=== PATIENT | female | born 1995 | race Caucasian/White ===

== ENCOUNTER → 2017-10-23 | Outpatient (CLI) | payer OTHER ==
[2017-10-23 14:17] LABS: BASOPHILS ABSOLUTE AUTO 0.02 K/mm3 (0.00-0.23); BASOPHILS PERCENT AUTO 0 % (0-2); EOSINOPHILS ABSOLUTE AUTO 0.05 K/mm3 (0.00-0.68); EOSINOPHILS PERCENT AUTO 1 % (0-6); IMMATURE GRAN ABSOLUTE AUTO 0.01 K/mm3 (0.00-0.10); IMMATURE GRAN PERCENT AUTO 0 % (0-1); LYMPHOCYTES ABSOLUTE AUTO 2.75 K/mm3 (0.84-5.20); LYMPHOCYTES PERCENT AUTO 43 % (21-46); MONOCYTES ABSOLUTE AUTO 0.45 K/mm3 (0.16-1.47); MONOCYTES PERCENT AUTO 7 % (4-13); Mean Corpuscular HGB Conc 34.2 g/dL (31.5-36.5); Mean Corpuscular Volume 88 fL (80-100); NEUTROPHILS PERCENT AUTO 49 % (41-73); Platelet Count 268 K/mm3 (150-400); RDW Coefficient Variation 12.1 % (11.7-14.2); Red Blood Cell Count 4.33 M/mm3 (3.80-5.20); White Blood Cell Count 6.38 K/mm3 (4.00-11.30)
[2017-10-23 14:20] LABS: Anion Gap 10 mmol/L (6-16); Blood Urea Nitrogen 11 mg/dL (8-24); Bun/Creatinine Ratio 15.9 (12.0-20.0); CO2, Blood 26 mmol/L (21-32); Calcium, Blood 9.4 mg/dL (8.5-10.1); Chloride, Blood 104 mmol/L (98-108); Creatinine, Blood 0.69 mg/dL (0.40-1.00); Glomerular Filtration Rate >60 (60-); Glucose, Blood 83 mg/dL (70-99); Potassium, Blood 4.2 mmol/L (3.5-5.5); Sodium, Blood 140 mmol/L (136-145)
== END | disposition home or self-care (01) ==
LOC: LAB EV 14:09 → LAB SHORT 14:09
PROVIDERS: Physician Assistant Surgical
DX: R07.9 Chest pain, unspecified (principal)
CPT/HCPCS: 80048; 85025; 85379

== ENCOUNTER → 2017-11-13 | Outpatient (CLI) | payer OTHER ==
[2017-11-16 15:07] LABS: CHLAMYDIA BY NAA Negative (Negative); GONOCOCCUS BY NAA Negative (Negative); TRICH VAG BY NAA Negative (Negative)
== END | disposition home or self-care (01) ==
LOC: LAB EV 15:22 → LAB SHORT 15:22
PROVIDERS: Physician Assistant
DX: R10.2 Pelvic and perineal pain (principal)
CPT/HCPCS: 87070; 87205; 87491; 87591; 87661

== ENCOUNTER 2018-02-18 17:50 | Emergency (ER) | payer OTHER ==
[~2018-02-18] VITALS: Ht 154.9 cm; Wt 52.2 kg
[2018-02-18] MEDS ORDERED: BRINTELLIX10 MG PO (18:13)
[2018-02-18] MEDS ORDERED: CONCOR (18:17)
[2018-02-18 19:07] LABS: BASOPHILS ABSOLUTE AUTO 0.02 K/mm3 (0.00-0.23); BASOPHILS PERCENT AUTO 0 % (0-2); EOSINOPHILS ABSOLUTE AUTO 0.03 K/mm3 (0.00-0.68); EOSINOPHILS PERCENT AUTO 0 % (0-6); Hematocrit 39.5 % (33.0-51.0); Hemoglobin 13.6 g/dL (11.5-16.0); IMMATURE GRAN ABSOLUTE AUTO 0.01 K/mm3 (0.00-0.10); IMMATURE GRAN PERCENT AUTO 0 % (0-1); LYMPHOCYTES ABSOLUTE AUTO 3.64 K/mm3 (0.84-5.20); LYMPHOCYTES PERCENT AUTO 48 % (21-46); MONOCYTES ABSOLUTE AUTO 0.55 K/mm3 (0.16-1.47); MONOCYTES PERCENT AUTO 7 % (4-13); Mean Corpuscular HGB 29.4 pg (26.0-34.0); Mean Corpuscular HGB Conc 34.4 g/dL (31.5-36.5); Mean Corpuscular Volume 86 fL (80-100); NEUTROPHILS PERCENT AUTO 44 % (41-73); Platelet Count 318 K/mm3 (150-400); RDW Coefficient Variation 12.4 % (11.7-14.2); RDW Standard Deviation 38.5 fL (35.1-46.3); Red Blood Cell Count 4.62 M/mm3 (3.80-5.20); White Blood Cell Count 7.55 K/mm3 (4.00-11.30)
[2018-02-18 19:29] LABS: Alanine Aminotransfer (ALT/SGP 18 U/L (12-78); Albumin, Blood 3.9 g/dL (3.4-5.0); Albumin/Globulin Ratio 0.9 (0.8-1.8); Alk Phos 56 U/L (50-136); Anion Gap 10 mmol/L (6-16); Aspartate Aminotrans (AST/SGOT 13 U/L (12-37); Bilirubin, Total 0.5 mg/dL (0.1-1.0); Blood Urea Nitrogen 9 mg/dL (8-24); Bun/Creatinine Ratio 14.8 (12.0-20.0); CO2, Blood 21 mmol/L (21-32); Calcium, Blood 9.2 mg/dL (8.5-10.1); Chloride, Blood 109 mmol/L (98-108); Creatinine, Blood 0.61 mg/dL (0.40-1.00); Globulin, Blood 4.3 g/dL (2.2-4.0); Glomerular Filtration Rate >60 (60-); Glucose, Blood 76 mg/dL (70-99); Potassium, Blood 3.3 mmol/L (3.5-5.5); Sodium, Blood 140 mmol/L (136-145); Total Protein, Blood 8.2 g/dL (6.4-8.2)
== END 2018-02-18 20:00 | disposition home or self-care (01) ==
LOC: ER 17:50
PROVIDERS: Emergency Medicine
DX: F41.9 Anxiety disorder, unspecified (principal); F32.9 Major depressive disorder, single episode, unspecified; F17.210 Nicotine dependence, cigarettes, uncomplicated; Z79.899 Other long term (current) drug therapy
CPT/HCPCS: 71046; 80053; 85025; 93005; 93010; 99284-25

== ENCOUNTER → 2018-04-09 | Outpatient (CLI) | payer OTHER ==
[~2018-04-09] MED LIST: BRINTELLIX10 MG PO; Bisoprolol Fumar5 MG; CONCOR; [UNRECOGNIZED DRUG - OTHER]
== END | disposition home or self-care (01) ==
LOC: LAB SHORT 13:38 → LAB EV 13:38
DX: J02.9 Acute pharyngitis, unspecified (principal)
CPT/HCPCS: 87070

== ENCOUNTER → 2018-05-25 | Outpatient (CLI) | payer OTHER ==
[2018-05-25 16:49] LABS: BASOPHILS ABSOLUTE AUTO 0.01 K/mm3 (0.00-0.23); BASOPHILS PERCENT AUTO 0 % (0-2); EOSINOPHILS ABSOLUTE AUTO 0.04 K/mm3 (0.00-0.68); EOSINOPHILS PERCENT AUTO 1 % (0-6); Hematocrit 37.3 % (33.0-51.0); Hemoglobin 12.9 g/dL (11.5-16.0); IMMATURE GRAN ABSOLUTE AUTO 0.02 K/mm3 (0.00-0.10); IMMATURE GRAN PERCENT AUTO 0 % (0-1); LYMPHOCYTES ABSOLUTE AUTO 3.21 K/mm3 (0.84-5.20); LYMPHOCYTES PERCENT AUTO 41 % (21-46); MONOCYTES ABSOLUTE AUTO 0.61 K/mm3 (0.16-1.47); MONOCYTES PERCENT AUTO 8 % (4-13); Mean Corpuscular HGB 29.7 pg (26.0-34.0); Mean Corpuscular HGB Conc 34.6 g/dL (31.5-36.5); Mean Corpuscular Volume 86 fL (80-100); Mean Platelet Volume 10.1 fL (9.1-12.4); NEUTROPHILS ABSOLUTE AUTO 3.94 K/mm3 (1.96-9.15); NEUTROPHILS PERCENT AUTO 50 % (41-73); Platelet Count 318 K/mm3 (150-400); RDW Coefficient Variation 12.3 % (11.7-14.2); RDW Standard Deviation 38.4 fL (35.1-46.3); Red Blood Cell Count 4.35 M/mm3 (3.80-5.20); White Blood Cell Count 7.83 K/mm3 (4.00-11.30)
[2018-05-25 17:00] LABS: Alanine Aminotransfer (ALT/SGP 39 U/L (12-78); Albumin, Blood 3.6 g/dL (3.4-5.0); Albumin/Globulin Ratio 0.9 (0.8-1.8); Alk Phos 58 U/L (40-126); Anion Gap 14 mmol/L (6-16); Aspartate Aminotrans (AST/SGOT 25 U/L (12-37); Bilirubin, Total 0.2 mg/dL (0.1-1.0); Blood Urea Nitrogen 7 mg/dL (8-24); Bun/Creatinine Ratio 9.7 (12.0-20.0); CO2, Blood 21 mmol/L (21-32); Chloride, Blood 105 mmol/L (98-108); Creatinine, Blood 0.72 mg/dL (0.40-1.00); Globulin, Blood 4.2 g/dL (2.2-4.0); Glomerular Filtration Rate >60 (60-); Glucose, Blood 80 mg/dL (70-99); Potassium, Blood 3.3 mmol/L (3.5-5.5); Sodium, Blood 140 mmol/L (136-145); Total Protein, Blood 7.8 g/dL (6.4-8.2)
== END | disposition home or self-care (01) ==
LOC: LAB EV 16:43 → LAB SHORT 16:43
PROVIDERS: Family Medicine
DX: R11.2 Nausea with vomiting, unspecified (principal); R19.7 Diarrhea, unspecified
CPT/HCPCS: 80053; 85025

== ENCOUNTER → 2018-06-07 | Outpatient (CLI) | payer OTHER ==
[2018-06-07 14:41] LABS: U Amphetamine Screen Not Detected; U Barbituate Screen Not Detected; U Benzodiazapine Screen DETECTED; U Buprenorphine Screen Not Detected; U Cannabinoids Screen Not Detected; U Cocaine Screen Not Detected; U Methadone Screen Not Detected; U Methamphetamine Screen Not Detected; U Opiates Screen Not Detected; U Oxycodone Screen Not Detected; U Phencyclidine Screen Not Detected; U Propoxyphene Screen Not Detected
== END ==
LOC: LAB 14:19 → LAB SHORT 14:19
PROVIDERS: Nurse Practitioner Family
DX: Z51.81 Encounter for therapeutic drug level monitoring (principal); Z79.899 Other long term (current) drug therapy

== ENCOUNTER 2018-06-12 19:14 | Emergency (ER) | payer OTHER ==
[~2018-06-12] VITALS: Ht 154.9 cm; Wt 49.9 kg
[2018-06-12 20:05] LABS: BASOPHILS ABSOLUTE AUTO 0.03 K/mm3 (0.00-0.23); BASOPHILS PERCENT AUTO 0 % (0-2); EOSINOPHILS PERCENT AUTO 1 % (0-6); Hematocrit 38.2 % (33.0-51.0); Hemoglobin 12.8 g/dL (11.5-16.0); IMMATURE GRAN ABSOLUTE AUTO 0.01 K/mm3 (0.00-0.10); IMMATURE GRAN PERCENT AUTO 0 % (0-1); LYMPHOCYTES PERCENT AUTO 41 % (21-46); MONOCYTES ABSOLUTE AUTO 0.61 K/mm3 (0.16-1.47); MONOCYTES PERCENT AUTO 7 % (4-13); Mean Corpuscular HGB 29.9 pg (26.0-34.0); Mean Corpuscular HGB Conc 33.5 g/dL (31.5-36.5); Mean Corpuscular Volume 89 fL (80-100); Mean Platelet Volume 10.2 fL (9.1-12.4); NEUTROPHILS ABSOLUTE AUTO 4.72 K/mm3 (1.96-9.15); NEUTROPHILS PERCENT AUTO 51 % (41-73); Platelet Count 306 K/mm3 (150-400); RDW Coefficient Variation 12.4 % (11.7-14.2); RDW Standard Deviation 40.7 fL (35.1-46.3); Red Blood Cell Count 4.28 M/mm3 (3.80-5.20); White Blood Cell Count 9.27 K/mm3 (4.00-11.30)
[2018-06-12 20:30] LABS: Alanine Aminotransfer (ALT/SGP 15 U/L (12-78); Albumin, Blood 3.6 g/dL (3.4-5.0); Albumin/Globulin Ratio 0.9 (0.8-1.8); Alk Phos 56 U/L (50-136); Anion Gap 9 mmol/L (6-16); Aspartate Aminotrans (AST/SGOT 12 U/L (12-37); Bilirubin, Total 0.3 mg/dL (0.1-1.0); Blood Urea Nitrogen 10 mg/dL (8-24); Bun/Creatinine Ratio 15.8 (12.0-20.0); CO2, Blood 21 mmol/L (21-32); Calcium, Blood 9.3 mg/dL (8.5-10.1); Chloride, Blood 109 mmol/L (98-108); Creatinine, Blood 0.63 mg/dL (0.40-1.00); Globulin, Blood 3.9 g/dL (2.2-4.0); Glomerular Filtration Rate >60 (60-); Glucose, Blood 77 mg/dL (70-99); Potassium, Blood 3.8 mmol/L (3.5-5.5); Sodium, Blood 139 mmol/L (136-145); Total Protein, Blood 7.5 g/dL (6.4-8.2); Troponin I <0.015 ng/mL (0.000-0.040)
== END 2018-06-12 22:32 | disposition left against medical advice (07) ==
LOC: ER 19:14
PROVIDERS: Emergency Medicine
DX: Z53.21 Procedure and treatment not carried out due to patient leaving prior to being seen by health care provider (principal)
CPT/HCPCS: 80053; 83690; 84484; 85025; 99281

== ENCOUNTER → 2019-10-23 | Outpatient (CLI) | payer OTHER ==
[2019-10-24 14:13] LABS: Candida species (DNA Probe) Negative (NEGATIVE); G. vaginalis (DNA Probe) Negative (NEGATIVE); T. vaginalis (DNA Probe) Negative (NEGATIVE)
== END ==
LOC: LAB 15:00 → LAB SHORT 15:00
PROVIDERS: Obstetrics & Gynecology
DX: Z01.419 Encounter for gynecological examination (general) (routine) without abnormal findings (principal); N76.0 Acute vaginitis
CPT/HCPCS: 87480; 87510; 87660

== ENCOUNTER → 2020-01-02 | Outpatient (CLI) | payer OTHER | END | disposition home or self-care (01) | LOC: PLD 08:03 → LAB SHORT 08:03 | DX: R87.613 High grade squamous intraepithelial lesion on cytologic smear of cervix (HGSIL) (principal) | CPT/HCPCS: 88307 ==

== ENCOUNTER → 2020-01-15 | Outpatient (CLI) | payer OTHER ==
[2020-01-16 11:59] LABS: Candida species (DNA Probe) Negative (NEGATIVE); G. vaginalis (DNA Probe) Positive (NEGATIVE); T. vaginalis (DNA Probe) Negative (NEGATIVE)
== END | disposition home or self-care (01) ==
LOC: LAB SHORT 09:35 → LAB 09:35
PROVIDERS: Obstetrics & Gynecology
DX: N89.8 Other specified noninflammatory disorders of vagina (principal)
CPT/HCPCS: 87480; 87510; 87660

== ENCOUNTER → 2020-05-07 | Outpatient (CLI) | payer OTHER ==
[~2020-05-07] MED LIST changes: +CODACE30 PO
[2020-05-09 15:50] LABS: CORONAVIRUS (COVID19) CSH-NRL Negative (Negative)
== END | disposition home or self-care (01) ==
LOC: LAB 18:03 → LAB SHORT 18:03
PROVIDERS: Chiropractor
DX: B34.9 Viral infection, unspecified (principal); Z20.828 Contact with and (suspected) exposure to other viral communicable diseases
CPT/HCPCS: U0003

== ENCOUNTER 2020-09-18 21:56 | Emergency (ER) | payer OTHER ==
[~2020-09-18] VITALS: Ht 154.9 cm; Wt 47.6 kg
[~2020-09-18 21:56] MED LIST changes: -CODACE30 PO
[2020-09-19] MEDS ORDERED: CODACE30 PO (00:42)
== END 2020-09-19 01:10 | disposition home or self-care (01) ==
LOC: ER 21:56
DX: S60.222A Contusion of left hand, initial encounter (principal); Z91.040 Latex allergy status; Z91.012 Allergy to eggs; Z91.02 Food additives allergy status; Z87.442 Personal history of urinary calculi; X50.1XXA Overexertion from prolonged static or awkward postures, initial encounter
CPT/HCPCS: 29130; 73130; 99283-25; A9270

== ENCOUNTER → 2021-03-03 | Outpatient (CLI) | payer OTHER ==
[~2021-03-03] MED LIST changes: +CODACE30 PO
[2021-03-04 13:09] LABS: HPV 16 Negative (Negative); HPV 18 Negative (Negative); HPV OTHER HR TYPES Negative (Negative)
== END | disposition home or self-care (01) ==
LOC: LAB 12:00 → LAB SHORT 12:00
PROVIDERS: Obstetrics & Gynecology
DX: Z09 Encounter for follow-up examination after completed treatment for conditions other than malignant neoplasm (principal); Z87.42 Personal history of other diseases of the female genital tract
CPT/HCPCS: 87624; 88142

== ENCOUNTER → 2021-08-20 | Outpatient (CLI) | payer OTHER ==
[2021-08-20 15:17] LABS: Source, Urine Clean Catch
[2021-08-20 17:28] LABS: Amorphous Mod (0-Heavy); Bacteria Mod /hpf; Red Blood Cells, Urine 0-2 /hpf (0-2); Squamous Epithelial Cells Mod /hpf (Few)
[2021-08-20 17:32] LABS: U Amphetamine Screen Not Detected; U Barbituate Screen Not Detected; U Benzodiazapine Screen Not Detected; U Buprenorphine Screen Not Detected; U Cannabinoids Screen Not Detected; U Cocaine Screen Not Detected; U Methadone Screen Not Detected; U Methamphetamine Screen Not Detected; U Opiates Screen Not Detected; U Oxycodone Screen Not Detected; U Phencyclidine Screen Not Detected; U Propoxyphene Screen Not Detected
== END | disposition home or self-care (01) ==
LOC: LAB SHORT 14:00 → LAB 14:00
PROVIDERS: Obstetrics & Gynecology
DX: Z34.01 Encounter for supervision of normal first pregnancy, first trimester (principal)
CPT/HCPCS: 81015; 87086

== ENCOUNTER → 2021-09-10 | Outpatient (CLI) | payer OTHER ==
[2021-09-11 15:12] LABS: HPV 16 Negative (Negative); HPV 18 Negative (Negative); HPV OTHER HR TYPES Negative (Negative)
== END | disposition home or self-care (01) ==
LOC: LAB SHORT 15:57
PROVIDERS: Obstetrics & Gynecology
DX: Z09 Encounter for follow-up examination after completed treatment for conditions other than malignant neoplasm (principal); Z87.42 Personal history of other diseases of the female genital tract
CPT/HCPCS: 87624; 88142

== ENCOUNTER 2022-03-24 05:10 | Inpatient (IN) | payer OTHER ==
[~2022-03-24] VITALS: Ht 154.9 cm; Wt 70.0 kg
[2022-03-24] MEDS ORDERED: BUSP10 (05:49)
[2022-03-24] MEDS ORDERED: Cyclobenzaprine5 MG PO (05:50)
[2022-03-24] MEDS ORDERED: GABA100 PO (05:51)
[2022-03-24] MEDS ORDERED: Colace100 MG PO (05:52)
[2022-03-24] MEDS ORDERED: 1/2 NS 250ml250 ML (05:52)
[2022-03-24 06:03] LABS: BASOPHILS ABSOLUTE AUTO 0.03 K/mm3 (0.00-0.23); BASOPHILS PERCENT AUTO 0 % (0-2); EOSINOPHILS ABSOLUTE AUTO 0.08 K/mm3 (0.00-0.68); EOSINOPHILS PERCENT AUTO 1 % (0-6); Hematocrit 35.9 % (33.0-51.0); IMMATURE GRAN ABSOLUTE AUTO 0.08 K/mm3 (0.00-0.10); IMMATURE GRAN PERCENT AUTO 1 % (0-1); LYMPHOCYTES ABSOLUTE AUTO 2.65 K/mm3 (0.84-5.20); LYMPHOCYTES PERCENT AUTO 25 % (21-46); MONOCYTES ABSOLUTE AUTO 0.96 K/mm3 (0.16-1.47); MONOCYTES PERCENT AUTO 9 % (4-13); Mean Corpuscular HGB 28.7 pg (26.0-34.0); Mean Corpuscular HGB Conc 33.4 g/dL (31.5-36.5); Mean Corpuscular Volume 86 fL (80-100); NEUTROPHILS ABSOLUTE AUTO 6.93 K/mm3 (1.96-9.15); NEUTROPHILS PERCENT AUTO 65 % (41-73); Platelet Count 296 K/mm3 (150-400); RDW Coefficient Variation 13.1 % (11.7-14.2); RDW Standard Deviation 40.9 fL (35.1-46.3); Red Blood Cell Count 4.18 M/mm3 (3.80-5.20); White Blood Cell Count 10.73 K/mm3 (4.00-11.30)
--- NOTE | 2022-03-24 16:27 | NUR ---
Assumed care from Sophy Corbin RN.
--- NOTE | 2022-03-25 00:55 | NUR ---
Pt has med questions. notified nurse. Pt has no further needs at this time.
--- NOTE | 2022-03-25 05:56 | NUR ---
Pt laying on her side,attempting to sleep. Baby is in crib. Pt has No needs at this time.
--- NOTE | 2022-03-25 06:11 | NUR ---
No Vitals at this time. Pt & Baby asleep. Notified nurse.
== END 2022-03-25 20:00 | disposition home or self-care (01) | DRG 807 ==
LOC: OBS 05:10 → BC 05:13 → OBS 05:21 → BC 05:22
PROVIDERS: ADMIT Obstetrics & Gynecology
PROC: 10E0XZZ Delivery of Products of Conception, External Approach (ICD-10-PCS; principal; 2022-03-24)
PROC: 10907ZC Drainage of Amniotic Fluid, Therapeutic from Products of Conception, Via Natural or Artificial Opening (ICD-10-PCS; 2022-03-24)
PROC: 3E033VJ Introduction of Other Hormone into Peripheral Vein, Percutaneous Approach (ICD-10-PCS; 2022-03-24)
PROC: 3E0R3BZ Introduction of Anesthetic Agent into Spinal Canal, Percutaneous Approach (ICD-10-PCS; 2022-03-24)
PROC: 00HU33Z Insertion of Infusion Device into Spinal Canal, Percutaneous Approach (ICD-10-PCS; 2022-03-24)
DX: O99.344 Other mental disorders complicating childbirth (principal); Z37.0 Single live birth; F41.8 Other specified anxiety disorders; M79.7 Fibromyalgia; O99.892 Other specified diseases and conditions complicating childbirth; M53.3 Sacrococcygeal disorders, not elsewhere classified; O71.89 Other specified obstetric trauma; Z87.891 Personal history of nicotine dependence; Z91.012 Allergy to eggs; Z91.040 Latex allergy status; Z91.018 Allergy to other foods; Z91.048 Other nonmedicinal substance allergy status; Z79.899 Other long term (current) drug therapy; Z98.890 Other specified postprocedural states; Z3A.39 39 weeks gestation of pregnancy
CPT/HCPCS: 85025; 86850; 86900; 86901; A9270; J1885; J2210; J2405; J2590; J3010; J7120

== ENCOUNTER → 2022-03-29 | Outpatient (CLI) | payer OTHER ==
[~2022-03-29] MED LIST changes: +1/2 NS 250ml250 ML; +BUSP10; +Colace100 MG PO; +Cyclobenzaprine5 MG PO; +GABA100 PO
[2022-03-30 10:35] LABS: Candida species (DNA Probe) Negative (NEGATIVE); G. vaginalis (DNA Probe) Positive (NEGATIVE); T. vaginalis (DNA Probe) Negative (NEGATIVE)
== END | disposition home or self-care (01) ==
LOC: LAB 17:23 → LAB SHORT 17:23
PROVIDERS: Obstetrics & Gynecology
DX: R10.2 Pelvic and perineal pain (principal)
CPT/HCPCS: 87480; 87510; 87660

== ENCOUNTER → 2022-05-05 | Outpatient (CLI) | payer OTHER ==
[2022-05-06 10:39] LABS: Candida species (DNA Probe) Negative (NEGATIVE); G. vaginalis (DNA Probe) Negative (NEGATIVE); T. vaginalis (DNA Probe) Negative (NEGATIVE)
== END | disposition home or self-care (01) ==
LOC: LAB SHORT 17:26 → LAB 17:26
PROVIDERS: Obstetrics & Gynecology
DX: N76.0 Acute vaginitis (principal)
CPT/HCPCS: 87480; 87510; 87660

== ENCOUNTER → 2023-08-30 | Outpatient (CLI) | payer OTHER ==
[~2023-08-30] MED LIST changes: +ONDA4ODT MM
[2023-09-06 15:09] LABS: HPV HIGH RISK BY TMA Not Detected; HPV SOURCE Cerv/Endocerv
== END ==
LOC: LAB 11:47 → LAB SHORT 11:47
PROVIDERS: Obstetrics & Gynecology
DX: Z01.419 Encounter for gynecological examination (general) (routine) without abnormal findings (principal)
CPT/HCPCS: 87624; G0123

== ENCOUNTER 2024-01-08 08:21 | Emergency (ER) | payer OTHER ==
[~2024-01-08] VITALS: Ht 154.9 cm; Wt 52.6 kg
[2024-01-08 08:49] VITALS: BP 135/96
[2024-01-08 09:20] LABS: BASOPHILS ABSOLUTE AUTO 0.02 K/mm3 (0.00-0.23); BASOPHILS PERCENT AUTO 0 % (0-2); EOSINOPHILS ABSOLUTE AUTO 0.05 K/mm3 (0.00-0.68); EOSINOPHILS PERCENT AUTO 1 % (0-6); Hematocrit 38.9 % (33.0-51.0); IMMATURE GRAN ABSOLUTE AUTO 0.03 K/mm3 (0.00-0.10); IMMATURE GRAN PERCENT AUTO 0 % (0-1); LYMPHOCYTES ABSOLUTE AUTO 2.79 K/mm3 (0.84-5.20); LYMPHOCYTES PERCENT AUTO 34 % (21-46); MONOCYTES ABSOLUTE AUTO 0.58 K/mm3 (0.16-1.47); MONOCYTES PERCENT AUTO 7 % (4-13); Mean Corpuscular HGB 30.4 pg (26.0-34.0); Mean Corpuscular Volume 84 fL (80-100); Mean Platelet Volume 9.6 fL (9.1-12.4); NEUTROPHILS ABSOLUTE AUTO 4.63 K/mm3 (1.96-9.15); NEUTROPHILS PERCENT AUTO 57 % (41-73); Platelet Count 356 K/mm3 (150-400); RDW Coefficient Variation 12.2 % (11.7-14.2); RDW Standard Deviation 37.2 fL (35.1-46.3); Red Blood Cell Count 4.61 M/mm3 (3.80-5.20)
[2024-01-08 09:27] LABS: Source, Urine Clean Catch
[2024-01-08 09:33] LABS: Appearance, Urine Clear (Clear); Bilirubin, Urine Neg (Neg); Blood, Urine 4+ (Neg); Color, Urine Yellow (P-Yellow); Glucose Qualitative, Urine Neg (Neg); Ketones, Urine 2+ (Neg); Leukocyte Esterase, Urine Neg (Neg); Nitrite, Urine Neg (Neg); Protein, Urine 2+ (Neg); Specific Gravity, Urine 1.025 (1.003-1.022); Urobilinogen, Urine NORM (Normal)
[2024-01-08 09:39] LABS: Albumin, Blood 4.3 g/dL (3.4-5.0); Albumin/Globulin Ratio 1.1 (0.8-1.8); Bilirubin, Total 0.7 mg/dL (0.1-1.0); Calcium, Blood 9.6 mg/dL (8.5-10.1); Creatinine, Blood 0.72 mg/dL (0.40-1.00); Globulin, Blood 3.8 g/dL (2.2-4.0); Potassium, Blood 3.5 mmol/L (3.5-5.5); Total Protein, Blood 8.1 g/dL (6.4-8.2)
[2024-01-08 09:43] LABS: Bacteria Few /hpf; Mucus Heavy (0-Heavy); Squamous Epithelial Cells Many /hpf (Few); White Blood Cells, Urine 0-2 /hpf (0-5)
[2024-01-08] MEDS ORDERED: Acetaminophen 500 MG Tab PO ONE (09:45)
[2024-01-08] MEDS ORDERED: NS 1,000 ML IV SCH (10:35)
[2024-01-08 12:27] LABS: Bacterial Vaginosis PCR Negative (NEGATIVE); Candida Group, PCR NOT DETECTED (NOT DETECT); Candida glabrata-krusei, PCR NOT DETECTED (NOT DETECT)
[2024-01-08 12:57] LABS: Chlamydia Trachomatis Vaginal NOT DETECTED (NOT DETECT); Neisseria Gonorrhoea Vaginal NOT DETECTED (NOT DETECT)
== END 2024-01-08 12:28 | disposition home or self-care (01) ==
LOC: ER 08:21
PROVIDERS: Physician Assistant; Student in an Organized Health Care Education/Training Program
DX: O20.9 Hemorrhage in early pregnancy, unspecified (principal); O99.281 Endocrine, nutritional and metabolic diseases complicating pregnancy, first trimester; E86.0 Dehydration; O99.331 Smoking (tobacco) complicating pregnancy, first trimester; F43.10 Post-traumatic stress disorder, unspecified; Z3A.01 Less than 8 weeks gestation of pregnancy; Z79.899 Other long term (current) drug therapy; Z91.012 Allergy to eggs; Z91.040 Latex allergy status; Z91.018 Allergy to other foods
CPT/HCPCS: 76801; 76817; 80053; 81001; 81025; 84702; 85025; 87481; 87661; 87801; J7030

== ENCOUNTER 2024-03-13 03:31 | Day surgery (SDC) | payer OTHER ==
[2024-03-13 14:03] VITALS: BP 112/57
== END 2024-03-13 18:11 | disposition home or self-care (01) ==
LOC: ATC 03:31
DX: O09.91 Supervision of high risk pregnancy, unspecified, first trimester (principal)
CPT/HCPCS: 96360; 96361; J3480; J7030

== ENCOUNTER 2024-03-21 02:53 | Day surgery (SDC) | payer OTHER ==
[2024-03-21 13:34] VITALS: BP 108/66
== END 2024-03-21 17:54 | disposition home or self-care (01) ==
LOC: ATC 02:53
DX: O09.91 Supervision of high risk pregnancy, unspecified, first trimester (principal); O16.1 Unspecified maternal hypertension, first trimester; O99.341 Other mental disorders complicating pregnancy, first trimester; F43.12 Post-traumatic stress disorder, chronic; O99.891 Other specified diseases and conditions complicating pregnancy; M79.7 Fibromyalgia; Z3A.12 12 weeks gestation of pregnancy; Z79.899 Other long term (current) drug therapy; Z87.891 Personal history of nicotine dependence; Z91.040 Latex allergy status; Z88.3 Allergy status to other anti-infective agents
CPT/HCPCS: 96360; 96361; J3480; J7030

== ENCOUNTER → 2024-07-10 | Outpatient (CLI) | payer OTHER ==
[2024-07-10 13:54] LABS: Source, Urine Clean Catch
[2024-07-10 15:18] LABS: Appearance, Urine Clear (Clear); Bilirubin, Urine Neg (Neg); Blood, Urine 1+ (Neg); Glucose Qualitative, Urine Neg (Neg); Ketones, Urine Neg (Neg); Leukocyte Esterase, Urine Neg (Neg); Nitrite, Urine Neg (Neg); Protein, Urine Neg (Neg); Specific Gravity, Urine 1.005 (1.003-1.022); Urobilinogen, Urine NORM (Normal)
[2024-07-10 15:55] LABS: Color, Urine Pale Yellow (P-Yellow)
[2024-07-10 16:06] LABS: Bacteria Rare /hpf; Red Blood Cells, Urine 0-2 /hpf (0-2); Squamous Epithelial Cells Few /hpf (Few); White Blood Cells, Urine 0-2 /hpf (0-5)
== END | disposition home or self-care (01) ==
LOC: LAB 12:27 → LAB SHORT 12:27
PROVIDERS: Obstetrics & Gynecology
DX: R30.0 Dysuria (principal)
CPT/HCPCS: 81001

== ENCOUNTER → 2024-07-18 | Outpatient (CLI) | payer OTHER ==
[2024-07-18 16:51] LABS: Source, Urine Clean Catch
[2024-07-18 18:47] LABS: Appearance, Urine Clear (Clear); Bilirubin, Urine Neg (Neg); Blood, Urine 2+ (Neg); Color, Urine Yellow (P-Yellow); Glucose Qualitative, Urine Neg (Neg); Ketones, Urine Neg (Neg); Leukocyte Esterase, Urine Neg (Neg); Nitrite, Urine Neg (Neg); Protein, Urine Neg (Neg); Urobilinogen, Urine NORM (Normal); pH, Urine 6.5 (5.0-8.0)
[2024-07-18 18:59] LABS: Bacteria Many /hpf; Squamous Epithelial Cells Mod /hpf (Few)
== END | disposition home or self-care (01) ==
LOC: LAB 16:47 → LAB SHORT 16:47
PROVIDERS: Obstetrics & Gynecology
DX: R30.0 Dysuria (principal)
CPT/HCPCS: 81001; 87086

== ENCOUNTER → 2024-08-15 | Outpatient (CLI) | payer OTHER | END | disposition home or self-care (01) | LOC: LAB 15:25 → LAB SHORT 15:25 | DX: O09.893 Supervision of other high risk pregnancies, third trimester (principal) | CPT/HCPCS: 87081; 87150 ==

== ENCOUNTER 2024-09-05 08:53 | Inpatient (IN) | payer OTHER ==
[2024-09-05] VITALS (48 sets, daily range): BP systolic 79–148; BP diastolic 46–80
[~2024-09-05] VITALS: Ht 154.9 cm; Wt 67.3 kg
[2024-09-05] MEDS ORDERED: Calcium Carbonate 500 MG Tab Chew PO SCH (09:30)
[2024-09-05] MEDS ORDERED: FentaNYL 2mcg/ml-Bup 0.1% Epd 250 ML EPI PRN (09:30)
[2024-09-05] MEDS ORDERED: Lactated Ringer's 1,000 ML IV SCH ×4 (09:30→20:40)
[2024-09-05] MEDS ORDERED: Methylergonovine Maleate 0.2MG / ML 1ML Amp IM PRN ×2 (09:30→20:40)
[2024-09-05] MEDS ORDERED: Lactated Ringer's 1,000 ML IV PRN (09:30)
[2024-09-05] MEDS ORDERED: OXYTOCIN/RINGER'S LACTATE 500 ML IV PRN (09:30)
[2024-09-05] MEDS ORDERED: Misoprostol 200 MCG Tab PR PRN ×2 (09:30→20:40)
[2024-09-05] MEDS ORDERED: Acetaminophen 500 MG Tab PO PRN (09:30)
[2024-09-05] MEDS ORDERED: Ondansetron HCl 2 MG / ML 2ML Vial IV PRN (09:30)
[2024-09-05] MEDS ORDERED: Carboprost Tromethamine 250 MCG/ML 1ML Amp IM PRN ×2 (09:30→20:35)
[2024-09-05] MEDS ORDERED: ePHEDrine Sulfate 50 MG/ML 1ML Injection XX PRN (09:30)
[2024-09-05] MEDS ORDERED: Misoprostol 200 MCG Tab BC PRN (09:30)
[2024-09-05] MEDS ORDERED: Oxytocin 10 Unit / ML Vial IM PRN (09:30)
[2024-09-05] MEDS ORDERED: Tranexamic Acid 100 ML IV SCH (09:35)
[2024-09-05] MEDS ORDERED: OXYTOCIN/RINGER'S LACTATE 500 ML IV SCH ×2 (11:05→20:40)
[2024-09-05 11:19] LABS: BASOPHILS ABSOLUTE AUTO 0.02 K/mm3 (0.00-0.23); BASOPHILS PERCENT AUTO 0 % (0-2); EOSINOPHILS ABSOLUTE AUTO 0.02 K/mm3 (0.00-0.68); EOSINOPHILS PERCENT AUTO 0 % (0-6); Hematocrit 33.7 % (33.0-51.0); Hemoglobin 11.2 g/dL (11.5-16.0); IMMATURE GRAN ABSOLUTE AUTO 0.08 K/mm3 (0.00-0.10); IMMATURE GRAN PERCENT AUTO 1 % (0-1); LYMPHOCYTES ABSOLUTE AUTO 1.89 K/mm3 (0.84-5.20); LYMPHOCYTES PERCENT AUTO 18 % (21-46); MONOCYTES ABSOLUTE AUTO 0.69 K/mm3 (0.16-1.47); MONOCYTES PERCENT AUTO 7 % (4-13); Mean Corpuscular HGB 27.3 pg (26.0-34.0); Mean Corpuscular HGB Conc 33.2 g/dL (31.5-36.5); Mean Corpuscular Volume 82 fL (80-100); Mean Platelet Volume 10.3 fL (9.1-12.4); NEUTROPHILS ABSOLUTE AUTO 7.73 K/mm3 (1.96-9.15); NEUTROPHILS PERCENT AUTO 74 % (41-73); Platelet Count 281 K/mm3 (150-400); RDW Standard Deviation 41.2 fL (35.1-46.3); White Blood Cell Count 10.43 K/mm3 (4.00-11.30)
[2024-09-05] MEDS ORDERED: ePHEDrine Sulfate 50 MG/ML 1ML Injection ONE (13:42)
--- NOTE | 2024-09-05 18:25 | NUR ---
PT REQUESTING TO DISCONTINUE TELE AT THIS TIME, REPORTS HER HEART FEELS FINE AND SHE IS COMFORTABLE TO CONTINUE WITHOUT MONITORING
[2024-09-05] MEDS ORDERED: Benzocaine Topical Anesthetic Spray 60GM TOP PRN (20:35)
[2024-09-05] MEDS ORDERED: Docusate Sodium 100 MG Cap PO PRN (20:35)
[2024-09-05] MEDS ORDERED: Witch Hazel/Glycerin PADS TOP PRN (20:35)
[2024-09-05] MEDS ORDERED: Acetaminophen 325 MG TABLET PO PRN (20:40)
[2024-09-05] MEDS ORDERED: Naproxen 500 MG Tab PO PRN (20:40)
[2024-09-05 22:23] LABS: BASOPHILS ABSOLUTE AUTO 0.02 K/mm3 (0.00-0.23); BASOPHILS PERCENT AUTO 0 % (0-2); EOSINOPHILS PERCENT AUTO 0 % (0-6); Hematocrit 29.4 % (33.0-51.0); IMMATURE GRAN ABSOLUTE AUTO 0.08 K/mm3 (0.00-0.10); IMMATURE GRAN PERCENT AUTO 1 % (0-1); LYMPHOCYTES ABSOLUTE AUTO 1.88 K/mm3 (0.84-5.20); LYMPHOCYTES PERCENT AUTO 11 % (21-46); MONOCYTES ABSOLUTE AUTO 1.13 K/mm3 (0.16-1.47); MONOCYTES PERCENT AUTO 6 % (4-13); Mean Corpuscular HGB 27.9 pg (26.0-34.0); Mean Corpuscular Volume 82 fL (80-100); Mean Platelet Volume 9.9 fL (9.1-12.4); NEUTROPHILS ABSOLUTE AUTO 14.46 K/mm3 (1.96-9.15); NEUTROPHILS PERCENT AUTO 82 % (41-73); Platelet Count 233 K/mm3 (150-400); RDW Standard Deviation 41.4 fL (35.1-46.3); Red Blood Cell Count 3.58 M/mm3 (3.80-5.20); White Blood Cell Count 17.57 K/mm3 (4.00-11.30)
[2024-09-05 22:48] LABS: Albumin, Blood 2.3 g/dL (3.4-5.0); Albumin/Globulin Ratio 0.7 (0.8-1.8); Bilirubin, Total 0.3 mg/dL (0.1-1.0); Bun/Creatinine Ratio 11.3 (12.0-20.0); Calcium, Blood 8.4 mg/dL (8.5-10.1); Creatinine, Blood 0.44 mg/dL (0.40-1.00); Globulin, Blood 3.5 g/dL (2.2-4.0); Potassium, Blood 3.5 mmol/L (3.5-5.5); Total Protein, Blood 5.8 g/dL (6.4-8.2)
[2024-09-06] MEDS ORDERED: Ketorolac Tromethamine 30mg Vial IV SCH
[2024-09-06 00:41] VITALS: BP 117/56
[2024-09-06 05:54] VITALS: BP 119/69
[2024-09-06 08:12] VITALS: BP 112/67
--- NOTE | 2024-09-06 08:28 | NUR ---
pt reports doing well, reports only a few times of her heart racing, but feels good and would like to go home this evening
[2024-09-06] MEDS ORDERED: Prenatal Vit/FE Fumarate/FA 1 Tab PO SCH (09:00)
[2024-09-06 12:54] VITALS: BP 110/60
[2024-09-06] MEDS ORDERED: NAPR500 PO (14:21)
[2024-09-06 17:07] VITALS: BP 103/54
--- NOTE | 2024-09-06 17:59 | NUR ---
DC INSTRUCTIONS GONE OVER WITH PT, VERBALIZE UNDERSTANDING, ENCOURAGED TO CALL DR BOLANOS WITH QUESTIONS, PT HAS HER SCRIPT FILLED FOR NAPROXEN AND REPORTS CANT TAKE ANYTHING ELSE DUE TO HER HEART. PT HAS REPORTS 2 EPISODES OF TACHYCARDIA LASTING FOR ABOUT 30 SECONDS OR LESS. PT DIDNT TELL RN UNTIL LATER THAT IT HAD HAPPENED, WITH VITAL SIGNS HR HAS BEEN 70-80
--- NOTE | 2024-09-06 19:00 | NUR ---
dc home with and baby, moms complaint is her back is sore, mo butt nurse anestetist saw pt today and reassured her the back pain was normal in encouraged her to continue with naproxen, use heat and ice to help with back pain, pt felt reassured after talking with anesthesia that she was ok.
== END 2024-09-06 19:00 | disposition home or self-care (01) | DRG 806 ==
LOC: OBS 08:53 → BC 08:53 → OBS 09:29 → BC 09:30
PROVIDERS: ADMIT Obstetrics & Gynecology
PROC: 10D07Z6 Extraction of Products of Conception, Vacuum, Via Natural or Artificial Opening (ICD-10-PCS; principal; 2024-09-05)
PROC: 3E0R3BZ Introduction of Anesthetic Agent into Spinal Canal, Percutaneous Approach (ICD-10-PCS; 2024-09-05)
PROC: 00HU33Z Insertion of Infusion Device into Spinal Canal, Percutaneous Approach (ICD-10-PCS; 2024-09-05)
PROC: 10907ZC Drainage of Amniotic Fluid, Therapeutic from Products of Conception, Via Natural or Artificial Opening (ICD-10-PCS; 2024-09-05)
DX: O99.42 Diseases of the circulatory system complicating childbirth (principal); I47.19 Other supraventricular tachycardia; Z37.0 Single live birth; Z3A.39 39 weeks gestation of pregnancy; O99.284 Endocrine, nutritional and metabolic diseases complicating childbirth; E87.6 Hypokalemia; O99.344 Other mental disorders complicating childbirth; O99.892 Other specified diseases and conditions complicating childbirth; F43.12 Post-traumatic stress disorder, chronic; M79.7 Fibromyalgia; F41.8 Other specified anxiety disorders; Z98.890 Other specified postprocedural states; Z87.891 Personal history of nicotine dependence; Z91.012 Allergy to eggs; Z91.040 Latex allergy status; Z88.8 Allergy status to other drugs, medicaments and biological substances; Z91.018 Allergy to other foods; Z79.899 Other long term (current) drug therapy
CPT/HCPCS: 36415; 51702; 59025; 80053; 85025; 86850; 86900; 86901; 99214; A9270; J2590; J7120

== ENCOUNTER 2024-09-09 22:57 | Emergency (ER) | payer OTHER ==
[~2024-09-09] VITALS: Ht 154.9 cm; Wt 68.0 kg
[~2024-09-09 22:57] MED LIST changes: +NAPR500 PO
[2024-09-09 23:18] LABS: BASOPHILS ABSOLUTE AUTO 0.02 K/mm3 (0.00-0.23); BASOPHILS PERCENT AUTO 0 % (0-2); EOSINOPHILS ABSOLUTE AUTO 0.17 K/mm3 (0.00-0.68); EOSINOPHILS PERCENT AUTO 2 % (0-6); Hematocrit 34.8 % (33.0-51.0); Hemoglobin 11.1 g/dL (11.5-16.0); IMMATURE GRAN ABSOLUTE AUTO 0.03 K/mm3 (0.00-0.10); IMMATURE GRAN PERCENT AUTO 0 % (0-1); LYMPHOCYTES ABSOLUTE AUTO 2.95 K/mm3 (0.84-5.20); LYMPHOCYTES PERCENT AUTO 34 % (21-46); MONOCYTES ABSOLUTE AUTO 0.67 K/mm3 (0.16-1.47); MONOCYTES PERCENT AUTO 8 % (4-13); Mean Corpuscular HGB Conc 31.9 g/dL (31.5-36.5); Mean Corpuscular Volume 85 fL (80-100); Mean Platelet Volume 9.4 fL (9.1-12.4); NEUTROPHILS ABSOLUTE AUTO 4.73 K/mm3 (1.96-9.15); NEUTROPHILS PERCENT AUTO 55 % (41-73); Platelet Count 375 K/mm3 (150-400); RDW Coefficient Variation 14.2 % (11.7-14.2); RDW Standard Deviation 43.6 fL (35.1-46.3); Red Blood Cell Count 4.11 M/mm3 (3.80-5.20); White Blood Cell Count 8.57 K/mm3 (4.00-11.30)
[2024-09-09 23:39] LABS: Albumin/Globulin Ratio 0.8 (0.8-1.8); Bilirubin, Total 0.2 mg/dL (0.1-1.0); Bun/Creatinine Ratio 43.6 (12.0-20.0); Calcium, Blood 9.7 mg/dL (8.5-10.1); Creatinine, Blood 0.46 mg/dL (0.40-1.00); Globulin, Blood 3.7 g/dL (2.2-4.0); Potassium, Blood 3.6 mmol/L (3.5-5.5); Total Protein, Blood 6.7 g/dL (6.4-8.2)
[2024-09-10 01:12] LABS: Source, Urine Clean Catch
[2024-09-10 01:21] LABS: Bilirubin, Urine Neg (Neg); Blood, Urine 5+ (Neg); Glucose Qualitative, Urine Neg (Neg); Ketones, Urine Neg (Neg); Leukocyte Esterase, Urine 1+ (Neg); Nitrite, Urine Neg (Neg); Protein, Urine Neg (Neg); Specific Gravity, Urine 1.015 (1.003-1.022); Urobilinogen, Urine NORM (Normal)
[2024-09-10 01:27] LABS: Appearance, Urine Cloudy (Clear); Color, Urine Pale Yellow (P-Yellow)
[2024-09-10 01:30] LABS: Amorphous Heavy (0-Heavy); Bacteria Mod /hpf; Squamous Epithelial Cells Few /hpf (Few)
[2024-09-10 02:15] VITALS: BP 129/84
== END 2024-09-10 02:52 | disposition home or self-care (01) ==
LOC: ER 22:57
PROVIDERS: Student in an Organized Health Care Education/Training Program
DX: O90.89 Other complications of the puerperium, not elsewhere classified (principal); R07.89 Other chest pain; O99.335 Smoking (tobacco) complicating the puerperium; F17.210 Nicotine dependence, cigarettes, uncomplicated; Z91.012 Allergy to eggs; Z91.018 Allergy to other foods; Z91.040 Latex allergy status; Z79.899 Other long term (current) drug therapy
CPT/HCPCS: 71260; 80053; 81001; 83690; 84484; 85025; 85379; 87086; 93005; 93010; 99285-25; Q9967

== ENCOUNTER 2024-09-10 21:38 | Emergency (ER) | payer OTHER ==
[~2024-09-10] VITALS: Ht 154.9 cm; Wt 67.1 kg
[2024-09-10 22:10] LABS: BASOPHILS ABSOLUTE AUTO 0.02 K/mm3 (0.00-0.23); BASOPHILS PERCENT AUTO 0 % (0-2); EOSINOPHILS ABSOLUTE AUTO 0.14 K/mm3 (0.00-0.68); EOSINOPHILS PERCENT AUTO 2 % (0-6); Hemoglobin 10.7 g/dL (11.5-16.0); IMMATURE GRAN ABSOLUTE AUTO 0.03 K/mm3 (0.00-0.10); IMMATURE GRAN PERCENT AUTO 0 % (0-1); LYMPHOCYTES PERCENT AUTO 31 % (21-46); MONOCYTES ABSOLUTE AUTO 0.66 K/mm3 (0.16-1.47); MONOCYTES PERCENT AUTO 7 % (4-13); Mean Corpuscular HGB 27.3 pg (26.0-34.0); Mean Corpuscular HGB Conc 32.4 g/dL (31.5-36.5); Mean Corpuscular Volume 84 fL (80-100); Mean Platelet Volume 9.5 fL (9.1-12.4); NEUTROPHILS PERCENT AUTO 60 % (41-73); Platelet Count 373 K/mm3 (150-400); RDW Coefficient Variation 14.3 % (11.7-14.2); RDW Standard Deviation 43.5 fL (35.1-46.3); Red Blood Cell Count 3.92 M/mm3 (3.80-5.20); White Blood Cell Count 9.55 K/mm3 (4.00-11.30)
[2024-09-10 22:35] LABS: Albumin, Blood 2.9 g/dL (3.4-5.0); Albumin/Globulin Ratio 0.8 (0.8-1.8); Bilirubin, Total 0.2 mg/dL (0.1-1.0); Bun/Creatinine Ratio 26.3 (12.0-20.0); Calcium, Blood 8.9 mg/dL (8.5-10.1); Creatinine, Blood 0.53 mg/dL (0.40-1.00); Globulin, Blood 3.8 g/dL (2.2-4.0); Potassium, Blood 3.2 mmol/L (3.5-5.5); Total Protein, Blood 6.7 g/dL (6.4-8.2)
[2024-09-10] MEDS ORDERED: Potassium Chl 20MEQ/Water100ML 100 ML IV SCH (23:05)
[2024-09-10] MEDS ORDERED: NS 1,000 ML IV SCH (23:05)
[2024-09-10 23:15] LABS: Magnesium, Blood 1.5 mg/dL (1.6-2.4); Phosphorus, Blood 2.6 mg/dL (2.5-4.9)
[2024-09-10] MEDS ORDERED: Magnesium Sulf 2 GM/Water 50ML 50 ML IV ONE (23:55)
[2024-09-11 02:30] VITALS: BP 109/58
== END 2024-09-11 02:53 | disposition home or self-care (01) ==
LOC: ER 21:38
PROVIDERS: Emergency Medicine
DX: E86.0 Dehydration (principal); E83.42 Hypomagnesemia; E87.6 Hypokalemia; Z91.012 Allergy to eggs; Z91.040 Latex allergy status; Z91.018 Allergy to other foods; Z88.1 Allergy status to other antibiotic agents; Z79.899 Other long term (current) drug therapy; F43.10 Post-traumatic stress disorder, unspecified
CPT/HCPCS: 71046; 80053; 83690; 83735; 84100; 84484; 85025; 93005; 93010; 96361; 96365; 96367; 99285-25; J3475; J3480; J7030

== ENCOUNTER → 2024-10-22 | Outpatient (CLI) | payer OTHER ==
[2024-10-22 11:45] LABS: Source, Urine Clean Catch
[2024-10-22 13:08] LABS: Appearance, Urine Clear (Clear); Bilirubin, Urine Neg (Neg); Blood, Urine Neg (Neg); Glucose Qualitative, Urine Neg (Neg); Ketones, Urine Neg (Neg); Leukocyte Esterase, Urine 2+ (Neg); Nitrite, Urine Neg (Neg); Protein, Urine 1+ (Neg); Urobilinogen, Urine NORM (Normal); pH, Urine 6.5 (5.0-8.0)
[2024-10-22 13:19] LABS: Color, Urine Pale Yellow (P-Yellow)
[2024-10-22 13:20] LABS: Bacteria Mod /hpf; Red Blood Cells, Urine 0-2 /hpf (0-2); Squamous Epithelial Cells Few /hpf (Few)
[2024-10-22 14:06] LABS: Bacterial Vaginosis PCR Positive (NEGATIVE); Candida Group, PCR NOT DETECTED (NOT DETECT); Candida glabrata-krusei, PCR NOT DETECTED (NOT DETECT)
== END ==
LOC: LAB SHORT 11:42 → LAB 11:42
PROVIDERS: Obstetrics & Gynecology
DX: N76.0 Acute vaginitis (principal); R30.0 Dysuria
CPT/HCPCS: 81001; 81515; 87086